=== PATIENT | female | born 1995 | race Caucasian/White ===

== ENCOUNTER 2016-04-20 09:21 | Emergency (ER) | payer SELFPAY ==
[2016-04-20 09:29] VITALS: BP 131/74
[2016-04-20 11:07] LABS: HEMATOCRIT 42.3 % (36.0-47.0); HEMOGLOBIN 14.6 g/dL (12.0-15.5); HGB HCT DIFFERENCE 1.5; MEAN CORPUSCULAR HEMOGLOBIN 33.5 pg (27.0-33.4); MEAN CORPUSCULAR HGB CONC 34.4 g/dL (32.0-36.0); MEAN CORPUSCULAR VOLUME 98 fl (80-97); RED BLOOD COUNT 4.34 10^6/uL (3.72-5.28); RED CELL DISTRIBUTION WIDTH 13.4 % (11.5-14.0); WHITE BLOOD COUNT 20.6 10^3/uL (4.0-10.5)
[2016-04-20 11:15] LABS: APPEARANCE,URINE CLOUDY; BILIRUBIN,URINE NEGATIVE (NEGATIVE); GLUCOSE, URINE NEGATIVE (NEGATIVE); KETONES,URINE TRACE mg/dL (NEGATIVE); LEUKOCYTE ESTERASE,URINE NEGATIVE (NEGATIVE); NITRITE,URINE NEGATIVE (NEGATIVE); PROTEIN,URINE 100 mg/dL (NEGATIVE); URINE SPECIFIC GRAVITY 1.033; UROBILINOGEN,URINE NEGATIVE mg/dL (<2.0)
[2016-04-20 11:28] LABS: ALANINE AMINOTRANSFERASE 24 U/L (9-52); ALBUMIN 5.1 g/dL (3.5-5.0); ALKALINE PHOSPHATASE 82 U/L (38-126); ANION GAP 16 (5-19); ASPARTATE AMINO TRANSFERASE 34 U/L (14-36); BILIRUBIN,TOTAL 0.8 mg/dL (0.2-1.3); BLOOD UREA NITROGEN 16 mg/dL (7-20); CALCIUM 10.5 mg/dL (8.4-10.2); CARBON DIOXIDE 24 mmol/L (22-30); CHLORIDE 99 mmol/L (98-107); CREATININE RESULT 0.71 mg/dL (0.52-1.25); GLUCOSE 98 mg/dL (75-110); POTASSIUM 3.4 mmol/L (3.6-5.0); SODIUM 138.6 mmol/L (137-145); TOTAL PROTEIN 8.6 g/dL (6.3-8.2)
[2016-04-20 11:29] LABS: BASOPHILS % (MANUAL) 0 % (0-2); EOSINOPHILS % (MANUAL) 0 % (0-6); LYMPHOCYTES % (MANUAL) 2 % (13-45); TOTAL CELLS COUNTED 100
[2016-04-20 11:30] LABS: RBC MORPHOLOGY COMMENT NORMO-CYTIC/CHROMIC; TOXIC GRANULATION 1+
--- NOTE | 2016-04-20 11:41 | ER Document Report ---
ED GI/ <GRECIA DELANEY - Last Filed: 04/20/16 12:28> - General Mode of Arrival: Ambulatory Information source: Patient - HPI Patient complains to provider of: Abdominal pain - "discomfort", Vomiting Onset: Yesterday Location: Epigastric Associated symptoms: Other - see above <DARIO LEVY - Last Filed: 04/20/16 15:04> - General Chief Complaint: Vomiting Stated Complaint: VOMITING Notes: 20-year-old female presents to the ED complaining of nausea and vomiting that started yesterday. Patient reports that she has some mild epigastric abdominal discomfort which "feels like a pit in my stomach." Patient denies any right- sided abdominal pain. Patient claims that she is at a loss of appetite and is unable to hold water down. Patient also complains of a sore throat, but denies fever. Patient states that she was seen at a clinic in [place] on Monday and was told she had a UTI. Patient claims that she was going to cook pickled meat the medication today. Patient had a pelvic exam also performed at the clinic in [place] which was negative. (DARIO LEVY) - Related Data Allergies/Adverse Reactions: No Known Allergies Allergy (Verified 04/20/16 09:49) Past Medical History - General Information source: Patient - Social History Smoking Status: Former Smoker Chew tobacco use (# tins/day): No Frequency of alcohol use: None Drug Abuse: None Family History: Reviewed & Not Pertinent Patient has suicidal ideation: No Patient has homicidal ideation: No Renal/ Medical History: Denies: Hx Peritoneal Dialysis Surgical Hx: Negative <DARIO LEVY - Last Filed: 04/20/16 15:04> Review of Systems - Review of Systems Constitutional: No symptoms reported. denies: Fever EENT: See HPI, Throat pain Cardiovascular: No symptoms reported Respiratory: No symptoms reported Gastrointestinal: See HPI, Abdominal pain - epigastric abdominal discomfort, Nausea, Vomiting, Poor appetite Genitourinary: No symptoms reported Female Genitourinary: No symptoms reported Musculoskeletal: No symptoms reported Skin: No symptoms reported Hematologic/Lymphatic: No symptoms reported Neurological/Psychological: No symptoms reported <DARIO LEVY - Last Filed: 04/20/16 15:04> Physical Exam - General General appearance: Alert In distress: None - HEENT Head: Normocephalic, Atraumatic Eyes: Normal Extraocular movements intact: Yes Pupils: PERRL - Respiratory Respiratory status: No respiratory distress Breath sounds: Normal - Cardiovascular Rhythm: Regular Heart sounds: Normal auscultation - Abdominal Inspection: Normal Distension: No distension Tenderness: Nontender, Other - No peritoneal sign.. No: Guarding, Rebound - Back Back: Normal - Extremities General upper extremity: Normal inspection, Normal ROM General lower extremity: Normal inspection, Normal ROM - Neurological Neuro grossly intact: Yes Cognition: Normal Orientation: AAOx4 Frazee Coma Scale Eye Opening: Spontaneous Albino Coma Scale Verbal: Oriented Albino Coma Scale Motor: Obeys Commands Albino Coma Scale Total: 15 Speech: Normal - Psychological Associated symptoms: Normal affect, Normal mood - Skin Skin Temperature: Warm Skin Moisture: Dry Skin Color: Normal <DARIO LEVY - Last Filed: 04/20/16 15:04> - Vital signs Vitals: Temp Pulse Resp BP Pulse Ox 98.0 F 74 18 131/74 H 98 04/20/16 09:28 04/20/16 09:28 04/20/16 09:28 04/20/16 09:28 04/20/16 09:28 Course - Laboratory Result Diagrams: 04/20/16 10:35 04/20/16 10:35 <GRECIA DELANEY - Last Filed: 04/20/16 12:28> - Laboratory Result Diagrams: 04/20/16 10:35 04/20/16 10:35 <DARIO LEVY - Last Filed: 04/20/16 15:04> - Re-evaluation Re-evalutation: 04/20/16 12:24 I personally performed the services described in the documentation, reviewed and edited the documentation which was dictated to my scribe in my presence, and it accurately records my words and actions. Patient presents to the emergency department with a chief complaint of 24 hours worth of vomiting. Patient says she was seen in [facility] ER 2 days ago had an extensive workup including a pelvic examination for blood work and told she had a UTI but did not fill the prescription. Here she's having some nausea but vehemently denies any fevers chills cough shortness of breath diarrhea blood in her stool urinary complaints chance of or flulike symptoms no ill contacts. On examination she is well-appearing nontoxic in no acute distress smiling and laughing with her boyfriend nontoxic HEENT heart lungs abdomen non-acute. Belly is soft no guarding rebound rigidity or peritoneal signs. Laboratory evaluation she does not have a urinary tract infection she does have a slightly elevated white count at 20,000 but nothing associated with that no flulike symptoms no earache second full workup in 2 days nontoxic. When and give her some Zofran for nausea which resolved it. Patient is to follow up with her primary care physician in one day and discussed reasons for ED return sooner no acute clinical concerns for meningitis or intra-abdominal pathology. ( GRECIA DELANEY) - Vital Signs Vital signs: Temp Pulse Resp BP Pulse Ox 98.0 F 74 18 131/74 H 98 04/20/16 09:28 04/20/16 09:28 04/20/16 09:28 04/20/16 09:28 04/20/16 09:28 - Laboratory Laboratory results interpreted by me: 04/20/16 04/20/16 04/20/16 10:35 10:35 10:40 WBC 20.6 H MCV 98 H MCH 33.5 H Seg Neuts % (Manual) 86 H Lymphocytes % (Manual) 2 L Abs Neuts (Manual) 17.7 H Abs Monocytes (Manual) 2.1 H Potassium 3.4 L Calcium 10.5 H Total Protein 8.6 H Albumin 5.1 H Urine Protein 100 H Urine Ketones TRACE H Discharge <GRECIA DELANEY - Last Filed: 04/20/16 12:28> <DARIO LEVY - Last Filed: 04/20/16 15:04> - Discharge Clinical Impression: Vomiting Qualifiers: Vomiting type: unspecified Vomiting Intractability: non-intractable Nausea presence: with nausea Qualified Code(s): R11.2 - Nausea with vomiting, unspecified Leukocytosis Qualifiers: Leukocytosis type: unspecified Qualified Code(s): D72.829 - Elevated white blood cell count, unspecified Condition: Stable Disposition: HOME, SELF-CARE Instructions: Antinausea Medication ([facility]) Additional Instructions: Vomiting and elevated wbc cell count Vomiting can be part of many illnesses. Most cases of vomiting are due to gastroenteritis, usually a viral infection in the intestinal tract. There is no specific treatment. The disease will end by itself. For now, the main danger to your child is dehydration. During the first few hours of the illness, give clear liquids, such as Pedialyte. Try to give small quantities frequently, such as a teaspoon of liquid every minute or about an ounce of fluids every five to ten minutes. Medications may be prescribed by the physician for special cases. After an hour or two of fluids without vomiting, add rice cereal, toast, applesauce, or bananas and other more solid foods to the clear liquids. Call the physician or go to the hospital if vomiting increases or blood appears in the bowel movement or vomitus; if your child fails to improve, or if signs of dehydration occur (no wet diapers for eight to twelve hours, tongue and mouth become dry, not acting as alert as usual). Prescriptions: Ondansetron [Zofran Odt 4 mg Tablet] 1 - 2 tab PO Q4H PRN #8 tab.rapdis PRN Reason: For Nausea/Vomiting Referrals: [facility] [Provider Group] - Follow up tomorrow (Return to the emergency prone sooner for increasing worsening or new symptoms) Scribe Documentation - Scribe Written by Jerad:: Jerad Sweeney, 04/20/2016 1504 acting as scribe for :: Marvin <DARIO LEVY - Last Filed: 04/20/16 15:04>
[2016-04-20] MEDS ORDERED: ONDANSETRON 4 MG TAB.RAPDIS PO ONE (11:43)
== END 2016-04-20 12:30 | disposition home or self-care (01) ==
LOC: ER 09:21
DX: R11.2 Nausea with vomiting, unspecified (principal); D72.829 Elevated white blood cell count, unspecified; R10.13 Epigastric pain; J02.9 Acute pharyngitis, unspecified; Z87.891 Personal history of nicotine dependence
CPT/HCPCS: 99283; 36415; 85025; 80053; 81001; S0119

== ENCOUNTER 2016-11-22 11:50 | Outpatient (CLI) | payer MEDICAID ==
[2016-11-22 12:27] LABS: APPEARANCE,URINE CLOUDY; BILIRUBIN,URINE NEGATIVE (NEGATIVE); GLUCOSE, URINE NEGATIVE (NEGATIVE); KETONES,URINE NEGATIVE (NEGATIVE); LEUKOCYTE ESTERASE,URINE MODERATE (NEGATIVE); NITRITE,URINE NEGATIVE (NEGATIVE); PROTEIN,URINE NEGATIVE (NEGATIVE); URINE SPECIFIC GRAVITY 1.004; UROBILINOGEN,URINE NEGATIVE mg/dL (<2.0)
[2016-11-22 12:41] LABS: ABSOLUTE EOSINOPHILS # (AUTO) 0.3 10^3/uL (0.0-0.6); ABSOLUTE LYMPHOCYTES (AUTO) 1.4 10^3/uL (0.5-4.7); ABSOLUTE MONOCYTES (AUTO) 0.5 10^3/uL (0.1-1.4); ABSOLUTE NEUT (AUTO) 4.9 10^3/uL (1.7-8.2); BASOPHILS % (AUTO) 0.4 % (0-2); EOSINOPHILS % (AUTO) 4.6 % (0-6); HEMOGLOBIN 11.3 g/dL (12.0-15.5); HGB HCT DIFFERENCE 1.9; LYMPHOCYTES % (AUTO) 19.1 % (13-45); MEAN CORPUSCULAR HEMOGLOBIN 34.6 pg (27.0-33.4); MEAN CORPUSCULAR HGB CONC 35.2 g/dL (32.0-36.0); MEAN CORPUSCULAR VOLUME 98 fl (80-97); MONOCYTES % (AUTO) 7.4 % (3-13); RED BLOOD COUNT 3.26 10^6/uL (3.72-5.28); RED CELL DISTRIBUTION WIDTH 14.2 % (11.5-14.0); SEGMENTED NEUTROPHILS % (AUTO) 68.5 % (42-78); WHITE BLOOD COUNT 7.2 10^3/uL (4.0-10.5)
[2016-11-22 12:42] LABS: URINE CREATININE 41.4 mg/dL (16-327); URINE PROTEIN 19.5 mg/dL (<12)
--- NOTE | 2016-11-22 12:44 | Non Stress Test Report ---
Non Stress Test Datetime Report Generated by CPN: 11/22/2016 12:44 DEMOGRAPHIC EGA NST: 38.4 INDICATION Indication for Study: Ordered by Provider MONITORING Monitor Explained: Monitor Explained; Test Explained; Patient Verbalized Understanding Time on Monitor: 11/22/2016 11:58 Time off Monitor: 11/22/2016 12:41 NST Duration: 43 NST INTERVENTIONS NST Interventions: PO Hydration; Meal Given; Reposition Patient Physician Notified NST: A Emmel CNM BABY A: [id number] BABY A Movement : Present Contraction Frequency : 0 FHR Baseline : 125 Accelerations : 15X15 Decelerations : None Variability : Moderate 6-25bpm NST Review: Meets Criteria for Reactive NST NST Review and Verified By : CEDRIC Richards Results: Reactive NST REPORT Report Trigger: Send Report
[2016-11-22 13:08] LABS: ALANINE AMINOTRANSFERASE 26 U/L (9-52); ALKALINE PHOSPHATASE 165 U/L (38-126); ANION GAP 7 (5-19); ASPARTATE AMINO TRANSFERASE 27 U/L (14-36); BILIRUBIN,DIRECT 0.2 mg/dL (0.0-0.4); BILIRUBIN,TOTAL 0.4 mg/dL (0.2-1.3); BLOOD UREA NITROGEN 6 mg/dL (7-20); CALCIUM 8.9 mg/dL (8.4-10.2); CARBON DIOXIDE 24 mmol/L (22-30); CHLORIDE 109 mmol/L (98-107); CREATININE RESULT 0.63 mg/dL (0.52-1.25); GLUCOSE 85 mg/dL (75-110); LDH 499 U/L (313-618); POTASSIUM 3.9 mmol/L (3.6-5.0); SODIUM 139.7 mmol/L (137-145); TOTAL PROTEIN 5.4 g/dL (6.3-8.2); URIC ACID 4.9 mg/dL (2.5-6.2)
[2016-11-22 14:02] LABS: URINE BARBITURATES SCREEN NEGATIVE; URINE METHADONE SCREEN NEGATIVE; URINE OPIATES LOW NEGATIVE; URINE PHENCYCLIDINE SCREEN NEGATIVE
== END 2016-11-22 13:23 | disposition home or self-care (01) ==
LOC: LC 11:50
PROVIDERS: ATTEND Obstetrics & Gynecology
PROC: 4A1HXCZ Monitoring of Products of Conception, Cardiac Rate, External Approach (ICD-10-PCS; principal; 2016-11-22)
DX: Z34.93 Encounter for supervision of normal pregnancy, unspecified, third trimester (principal)
CPT/HCPCS: 36415; 59025; 80053; 80307; 81001; 82570; 83615; 84156; 84550; 85025

== ENCOUNTER 2016-11-27 17:53 | Inpatient (IN) | payer MEDICAID ==
[2016-11-27] MEDS ORDERED: RINGERS SOLUTION,LACTATED 1,000 ML IV PRN (18:05)
[2016-11-27] MEDS ORDERED: ZOLPIDEM TARTRATE 5 MG TABLET PO PRN (18:05)
[2016-11-27] MEDS ORDERED: DINOPROSTONE 10 MG VAGINAL INSERT.SR PV PRN (18:05)
[2016-11-27 18:36] LABS: HEMATOCRIT 31.6 % (36.0-47.0); HEMOGLOBIN 11.3 g/dL (12.0-15.5); HGB HCT DIFFERENCE 2.3; MEAN CORPUSCULAR HEMOGLOBIN 34.9 pg (27.0-33.4); MEAN CORPUSCULAR HGB CONC 35.8 g/dL (32.0-36.0); MEAN CORPUSCULAR VOLUME 97 fl (80-97); RED BLOOD COUNT 3.24 10^6/uL (3.72-5.28); RED CELL DISTRIBUTION WIDTH 14.4 % (11.5-14.0)
[2016-11-27 18:40] LABS: APPEARANCE,URINE CLOUDY; BILIRUBIN,URINE NEGATIVE (NEGATIVE); GLUCOSE, URINE NEGATIVE (NEGATIVE); KETONES,URINE NEGATIVE (NEGATIVE); LEUKOCYTE ESTERASE,URINE SMALL (NEGATIVE); NITRITE,URINE NEGATIVE (NEGATIVE); PROTEIN,URINE 30 mg/dL (NEGATIVE); URINE SPECIFIC GRAVITY 1.015; UROBILINOGEN,URINE NEGATIVE mg/dL (<2.0)
[2016-11-27] MEDS ORDERED: DINOPROSTONE 10 MG VAGINAL INSERT.SR ONE (18:44)
[2016-11-27 18:53] LABS: ALANINE AMINOTRANSFERASE 33 U/L (9-52); ALBUMIN 3.2 g/dL (3.5-5.0); ALKALINE PHOSPHATASE 157 U/L (38-126); ANION GAP 9 (5-19); ASPARTATE AMINO TRANSFERASE 26 U/L (14-36); BILIRUBIN,DIRECT 0.3 mg/dL (0.0-0.4); BILIRUBIN,TOTAL 0.5 mg/dL (0.2-1.3); BLOOD UREA NITROGEN 8 mg/dL (7-20); CALCIUM 9.3 mg/dL (8.4-10.2); CARBON DIOXIDE 22 mmol/L (22-30); CHLORIDE 107 mmol/L (98-107); CREATININE RESULT 0.62 mg/dL (0.52-1.25); GLUCOSE 87 mg/dL (75-110); LDH 540 U/L (313-618); POTASSIUM 4.2 mmol/L (3.6-5.0); SODIUM 137.6 mmol/L (137-145); TOTAL PROTEIN 5.7 g/dL (6.3-8.2); URIC ACID 4.5 mg/dL (2.5-6.2)
[2016-11-27 18:59] LABS: URINE CREATININE 90.8 mg/dL (16-327); URINE PROTEIN 20.8 mg/dL (<12)
[2016-11-27 19:02] LABS: URINE BARBITURATES SCREEN NEGATIVE; URINE METHADONE SCREEN NEGATIVE; URINE OPIATES LOW NEGATIVE; URINE PHENCYCLIDINE SCREEN NEGATIVE
[2016-11-28] MEDS ORDERED: OXYTOCIN/NORMAL SALINE 20 UNIT/1,000 ML RTUINJ IV PRN (08:04)
[2016-11-28] MEDS ORDERED: OXYTOCIN/NORMAL SALINE 20 UNIT/1,000 ML RTUINJ ONE (08:14)
[2016-11-28] MEDS ORDERED: ONDANSETRON HCL INJ/PF 4 MG/2 ML SDV ONE (17:19)
[2016-11-28] MEDS ORDERED: ONDANSETRON HCL INJ/PF 4 MG/2 ML SDV IV ONE (18:00)
[2016-11-28] MEDS ORDERED: FENTANYL/BUPIVACAINE/NS/PF 200 MCG/100 ML RTUINJ EPI ONE (20:17)
[2016-11-28] MEDS ORDERED: BUPIVACAINE HCL 0.25 % INJ/PF (2.5 MG/1 ML) 30 ML VIAL ONE (20:17)
[2016-11-28] MEDS ORDERED: EPHEDRINE SULFATE INJ 50 MG/1 ML AMPULE ONE (20:17)
--- NOTE | 2016-11-28 20:28 | L&D Progress Notes ---
PROGRESS NOTES Datetime Report Generated by CPN: 11/28/2016 20:27 PROGRESS NOTE Impression: Normal Progression of Labor Procedures: Artificial ROM; Sterile Vag Exam Plan: Continue Present Management; Induction Informed Consent Obtained: Vaginal Delivery; Risks, Benefits and Alternatives Discussed Comment: cvx 3/50/-2. AROM clear fluid. Pt desires epidural. REviewed need for AROM due to IOL with minimal cervical change during the day for this IOL. Will continue with pitocin for IOL. Dr. Sims to be notified for epidural. VAGINAL EXAM Dilatation: 3 Effacement: 50 Station: -2 Contractions: q 2-3 MEMBRANES Pooling: Negative Membranes: Ruptured Amniotic Fluid Color: Clear FETUS A FHR - Baseline: 150 Monitoring: External US Variability: Moderate 6-25bpm Accelerations: 15X15 Decelerations: None FHR Category: Category I : 39.0 Presentation: Vertex SIGNATURE SIGNATURE: [id number] SIGNATURE: [id number] Signature: with User ID: [email or web address]
[2016-11-28] MEDS ORDERED: NALBUPHINE HCL INJ 10 MG/1 ML AMPULE INJ ONE (21:11)
[2016-11-28] MEDS ORDERED: NALBUPHINE HCL INJ 10 MG/1 ML AMPULE ONE (21:13)
[2016-11-28 21:48] LABS: ABSOLUTE EOSINOPHILS # (AUTO) 0.1 10^3/uL (0.0-0.6); ABSOLUTE LYMPHOCYTES (AUTO) 0.9 10^3/uL (0.5-4.7); ABSOLUTE MONOCYTES (AUTO) 0.8 10^3/uL (0.1-1.4); ABSOLUTE NEUT (AUTO) 12.9 10^3/uL (1.7-8.2); BASOPHILS % (AUTO) 0.2 % (0-2); EOSINOPHILS % (AUTO) 0.5 % (0-6); HEMATOCRIT 32.8 % (36.0-47.0); HEMOGLOBIN 11.5 g/dL (12.0-15.5); HGB HCT DIFFERENCE 1.7; LYMPHOCYTES % (AUTO) 6.4 % (13-45); MEAN CORPUSCULAR HEMOGLOBIN 34.2 pg (27.0-33.4); MEAN CORPUSCULAR VOLUME 98 fl (80-97); MONOCYTES % (AUTO) 5.2 % (3-13); RED BLOOD COUNT 3.37 10^6/uL (3.72-5.28); RED CELL DISTRIBUTION WIDTH 14.5 % (11.5-14.0); SEGMENTED NEUTROPHILS % (AUTO) 87.7 % (42-78); WHITE BLOOD COUNT 14.7 10^3/uL (4.0-10.5)
[2016-11-28 22:00] LABS: ALANINE AMINOTRANSFERASE 34 U/L (9-52); ALBUMIN 3.2 g/dL (3.5-5.0); ALKALINE PHOSPHATASE 187 U/L (38-126); ANION GAP 9 (5-19); ASPARTATE AMINO TRANSFERASE 27 U/L (14-36); BILIRUBIN,DIRECT 0.3 mg/dL (0.0-0.4); BILIRUBIN,TOTAL 0.6 mg/dL (0.2-1.3); BLOOD UREA NITROGEN 8 mg/dL (7-20); CALCIUM 8.9 mg/dL (8.4-10.2); CARBON DIOXIDE 20 mmol/L (22-30); CHLORIDE 109 mmol/L (98-107); CREATININE RESULT 0.55 mg/dL (0.52-1.25); GLUCOSE 82 mg/dL (75-110); LDH 562 U/L (313-618); POTASSIUM 3.6 mmol/L (3.6-5.0); SODIUM 137.8 mmol/L (137-145); TOTAL PROTEIN 5.7 g/dL (6.3-8.2); URIC ACID 4.8 mg/dL (2.5-6.2)
[2016-11-29] MEDS ORDERED: METHYLERGONOVINE MALEATE INJ/PF 0.2 MG/1 ML AMPULE ONE (05:57)
[2016-11-29] MEDS ORDERED: OXYTOCIN/NORMAL SALINE 20 UNIT/1,000 ML RTUINJ ONE (05:57)
[2016-11-29] MEDS ORDERED: LIDOCAINE 1% INJ-PF (10 MG/ML) 30 ML SDV ONE (05:57)
[2016-11-29] MEDS ORDERED: MISOPROSTOL 0.2 MG TABLET ONE (05:57)
[2016-11-29] MEDS ORDERED: PROMETHAZINE HCL 25 MG TABLET PO PRN (06:25)
[2016-11-29] MEDS ORDERED: PROMETHAZINE HCL INJ 25 MG/1 ML VIAL IV PRN (06:25)
[2016-11-29] MEDS ORDERED: PSEUDOEPHEDRINE HCL 30 MG TABLET PO PRN (06:25)
[2016-11-29] MEDS ORDERED: OXYTOCIN/NORMAL SALINE 20 UNIT/1,000 ML RTUINJ IV PRN (06:25)
[2016-11-29] MEDS ORDERED: BENZOCAINE/MENTHOL AEROSOL SPRAY 56 ML TOP PRN (06:25)
[2016-11-29] MEDS ORDERED: DIPHENHYDRAMINE HCL 25 MG CAPSULE PO PRN (06:25)
[2016-11-29] MEDS ORDERED: MEASLES,MUMPS&RUBELLA VACC/PF 0.5 ML VIAL SUBCUT PRN (06:25)
[2016-11-29] MEDS ORDERED: DIBUCAINE 1% OINTMENT 28 GM TP PRN (06:25)
[2016-11-29] MEDS ORDERED: ACETAMINOPHEN 650 MG SUPP.RECT PR PRN (06:25)
[2016-11-29] MEDS ORDERED: PROMETHAZINE HCL 25 MG SUPP.RECT PR PRN (06:25)
[2016-11-29] MEDS ORDERED: DIPH/PERTUSS(ACELL)/TETANUS VAC/PF 0.5 ML SYR (>=10YO) IM PRN (06:25)
[2016-11-29] MEDS ORDERED: ZOLPIDEM TARTRATE 5 MG TABLET PO PRN (06:25)
[2016-11-29] MEDS ORDERED: ACETAMINOPHEN WITH CODEINE #3 TABLET PO PRN ×2 (06:25)
[2016-11-29] MEDS ORDERED: NA PHOS,M-B/NA PHOS,DI-BA (ADULT) 133 ML ENEMA PR PRN (06:25)
[2016-11-29] MEDS ORDERED: MAGNESIUM HYDROXIDE SUSP 30 ML UDCUP PO PRN (06:25)
[2016-11-29] MEDS ORDERED: GLYCERIN/WITCH HAZEL LEAF 1 EACH MED..PAD TP PRN (06:25)
[2016-11-29] MEDS ORDERED: PIPERACILLIN/TAZOBACTAM 3.375 GM VIAL IV ONE ×2 (06:33→06:36)
[2016-11-29] MEDS ORDERED: ACETAMINOPHEN 325 MG TABLET ONE (08:08)
[2016-11-29] MEDS ORDERED: ACETAMINOPHEN 325 MG TABLET PO ONE (08:12)
--- NOTE | 2016-11-29 09:43 | Admission Physical ---
Datetime Report Generated by CPN: 11/29/2016 09:43 CURRENT ADMISSION Chief Complaint: Signs/Symptoms Gestational HTN Indication for Induction: PreEclampsia Indication for Induction: Term, Intrauterine ; Induction of Labor Admit Plan: Admit to Unit; Initiate Labor Induction Protocol ALLERGIES Medication Allergies: No Medication Allergies: No Known Allergies (11/27/2016) Medication Allergies: No Known Allergies (11/22/2016) Medication Allergies: No Known Allergies (04/20/2016) Latex: No Latex Allergies Food Allergies: None Environmental Allergies: None OBSTETRICAL HISTORY EDC: 12/02/2016 00:00 : 1 Para: 0 Term: 0 : 0 SAB: 0 IAB: 0 Ectopic: 0 Livin Cesareans: 0 VBACs: 0 Multiple Births: 0 Gestational Diabetes: No Rh Sensitization: No Incompetent Cervix: No YARELIS: No Infertility: No ART Treatment: No Uterine Anomaly: No IUGR: No Hx Previous C/S: No Macrosomia: No Hx Loss/Stillborn: No PIH: Yes Hx : No Placenta Previa/Abruption: No Depression/PP Depression: No PTL/PROM: No Post Hemorrhage: No Current Procedures: Ultrasound Obstetrical History Comments: G1 - Current - labile b/p w/ proteinuria, PreE vs Gest HTN SEE RECORDS Alcohol: No Marijuana : No Marijuana Frequency: Occasional Last Used: 05/17/2016 00:00 Previous Treatment: None Marijuana Comments: occasional use prior to Cocaine: No Other Illicit Drugs: No Cigarettes: Former Smoker. 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: No Heart Disease: No Hosp/Surgery: No Autoimmune Disorder: No Anesthetic Complications: No Kidney Disease: No Abnormal Pap Smear: No Neuro/Epilepsy: No Psychiatric Disorders: No Other Medical Diseases: No Hepatitis/Liver Disease: No Significant Family History: No Varicosities/Phlebitis: No Trauma/Violence : No Thyroid Dysfunction: No INFECTIOUS HISTORY Gonorrhea: No Genital Herpes: No Chlamydia: No Tuberculosis: No Syphilis: No Hepatitis: No HIV/AIDS Exposure: No Rash or Viral Illness: No HPV: No PHYSICAL EXAM General: Normal HEENT: Normal Neurologic: Normal Thyroid: Normal Heart: Normal Lungs: Normal Breast: Deferred Back: Normal Abdomen: Normal Genitourinary Exam: Normal Extremities: Normal DTRs: Normal Pelvic Type: Adequate Vital Signs: Reviewed VAGINAL EXAM Dilatation: 3 Effacement: 50 Station: -2 Contraction Comments: q 2-3 MEMBRANES Pooling: Negative Membranes: Ruptured Amniotic Fluid Color: Clear FETUS A EGA: 39.2 FHR- Baseline: 130 Decelerations: None FHR Category: Category I Presentation: Vertex Admit Comment: efw is 7-8 lbs PLANS FOR LABOR AND DELIVERY Labor and Delivery: None Pain Management: Epidural Feeding Preference: Breast Benefit of Breast Feed Discussed: Yes INFORMED CONSENT Informed Consent Obtained: Vaginal Delivery; Risks, Benefits and Alternatives Discussed Signature: with User ID: [email or web address]
[2016-11-29] MEDS: FAMOTIDINE 20 MG TABLET PO SCH ×2 (10:45→21:38)
[2016-11-29] MEDS: DOCUSATE SODIUM 100 MG CAPSULE PO SCH ×2 (10:45→18:19)
[2016-11-29] MEDS: FERROUS SULFATE 325 MG TABLET PO SCH ×2 (10:45→18:20)
[2016-11-29] MEDS: SENNOSIDES/DOCUSATE 8.6-50 MG 1 EACH TABLET PO SCH (10:45)
[2016-11-29] MEDS: PRENATAL VITAMIN W-O CA NO5/FE FUMARATE/FA CAPSULE PO SCH (10:49)
[2016-11-29] MEDS ORDERED: INFLUENZA ADLT QUAD (36MOS+) 2017-18 VAC 0.5 ML SYR IM PRN (11:14)
[2016-11-29] MEDS: PIPERACILLIN SODIUM/TAZOBACTAM 3.375 GM in NORMAL SALINE 100 ML IV SCH ×3 (12:21→23:26)
[2016-11-29] MEDS: IBUPROFEN 800 MG TABLET PO SCH ×2 (13:27→21:38)
[2016-11-30] MEDS: PIPERACILLIN SODIUM/TAZOBACTAM 3.375 GM in NORMAL SALINE 100 ML IV SCH (05:14)
[2016-11-30] MEDS: IBUPROFEN 800 MG TABLET PO SCH ×3 (05:15→21:28)
[2016-11-30 08:11] LABS: HEMATOCRIT 26.3 % (36.0-47.0); HGB HCT DIFFERENCE 1.6; MEAN CORPUSCULAR HEMOGLOBIN 34.8 pg (27.0-33.4); MEAN CORPUSCULAR HGB CONC 35.4 g/dL (32.0-36.0); MEAN CORPUSCULAR VOLUME 98 fl (80-97); RED BLOOD COUNT 2.68 10^6/uL (3.72-5.28); RED CELL DISTRIBUTION WIDTH 14.3 % (11.5-14.0); WHITE BLOOD COUNT 12.3 10^3/uL (4.0-10.5)
[2016-11-30 08:34] LABS: HEMOGLOBIN 9.3 g/dL (12.0-15.5)
[2016-11-30] MEDS: PRENATAL VITAMIN W-O CA NO5/FE FUMARATE/FA CAPSULE PO SCH (09:26)
[2016-11-30] MEDS: DOCUSATE SODIUM 100 MG CAPSULE PO SCH ×2 (09:26→17:39)
[2016-11-30] MEDS: SENNOSIDES/DOCUSATE 8.6-50 MG 1 EACH TABLET PO SCH (09:26)
[2016-11-30] MEDS: FERROUS SULFATE 325 MG TABLET PO SCH ×2 (09:26→17:39)
[2016-11-30] MEDS: FAMOTIDINE 20 MG TABLET PO SCH ×2 (09:27→21:28)
--- NOTE | 2016-11-30 11:46 | PDOC PROGRESS REPORT ---
Subjective-OB Subjective: Post Delivery Day: 1 21 year old. Denies any needs at this time, states lochia is stable, pain well controlled, voiding without difficulty. Physical Exam (OB) Vital Signs: Temp Pulse Resp BP Pulse Ox 98.1 F 64 16 120/61 100 11/30/16 08:43 11/30/16 08:43 11/30/16 08:43 11/30/16 08:43 11/30/16 08:43 Intake & Output 11/29/16 11/30/16 12/01/16 06:59 06:59 06:59 Intake Total 200 Balance 200 Weight 69.4 kg - PIH/Pre-Eclampsia DTR's: 1 + Clonus: Negative Headache: Absent Epigastric Pain: No Visual Changes: No - Lochia Lochia Amount: Scant < 10 ml Lochia Color: Rubra/Red - Abdomen Description: Soft Hernia Present: No Fundal Description: Firm Fundal Height: u/u - u/2 Objective-Diagnostic Laboratory: 11/30/16 07:29 11/28/16 21:40 11/30/16 07:29 WBC 12.3 H RBC 2.68 L Hgb 9.3 L D Hct 26.3 L MCV 98 H MCH 34.8 H MCHC 35.4 RDW 14.3 H Plt Count 163 Assessment and Plan(PN) - Assessment and Plan (1) Spontaneous vaginal delivery Is this a current diagnosis for this admission?: Yes Plan: routine pp care (2) Acute blood loss anemia Is this a current diagnosis for this admission?: Yes Plan: ferrous sulfate - Time Spent with Patient Time with patient: Less than 15 minutes Critical Time spent with patient: Less than 15 minutes Medications reviewed and adjusted accordingly: Yes - Disposition Anticipated Discharge: Home Within: within 24 hours
[2016-12-01] MEDS: IBUPROFEN 800 MG TABLET PO SCH ×2 (05:20→14:21)
[2016-12-01 08:43] VITALS: BP 129/84
[2016-12-01] MEDS: DOCUSATE SODIUM 100 MG CAPSULE PO SCH ×2 (09:33→18:16)
[2016-12-01] MEDS: FAMOTIDINE 20 MG TABLET PO SCH (09:34)
[2016-12-01] MEDS: PRENATAL VITAMIN W-O CA NO5/FE FUMARATE/FA CAPSULE PO SCH (09:34)
[2016-12-01] MEDS: SENNOSIDES/DOCUSATE 8.6-50 MG 1 EACH TABLET PO SCH (09:34)
[2016-12-01] MEDS: FERROUS SULFATE 325 MG TABLET PO SCH ×2 (09:34→18:16)
--- NOTE | 2016-12-01 10:38 | PDOC DISCHARGE SUMMARY ---
Final Diagnosis Discharge Date: 12/01/16 - Final Diagnosis (1) Acute blood loss anemia Is this a current diagnosis for this admission?: Yes (2) Spontaneous vaginal delivery Is this a current diagnosis for this admission?: Yes Discharge Data - Discharge Medication Home Medications: Cetirizine HCl [Zyrtec 10 mg Tablet] 10 mg PO QHS PRN 11/22/16 Pnv No.121/Iron/Folic Acid [ Multivitamin Tablet] 1 tab PO DAILY Ibuprofen [Motrin 800 mg Tablet] 800 mg PO Q8 #60 tablet 12/01/16 Reason(s) for Admission: Induction of Labor, PIH Procedures: NST Intrapartum Procedure(s): Spontaneous Vaginal Delivery - Diagnosis Test Laboratory: Temp Pulse Resp BP Pulse Ox 97.7 F 52 L 16 129/84 H 100 12/01/16 07:59 12/01/16 07:59 12/01/16 07:59 12/01/16 07:59 12/01/16 07:59 11/27/16 11/27/16 11/28/16 18:01 18:20 21:40 RBC 3.24 L 3.37 L Hgb 11.3 L 11.5 L Hct 31.6 L 32.8 L Urine Opiates Screen NEGATIVE 11/30/16 07:29 RBC 2.68 L Hgb 9.3 L D Hct 26.3 L Urine Opiates Screen - Discharge information/Instructions Discharge Activity: Activity As Tolerated, Pelvic Rest, No tub bath Discharge Diet: Regular Disposition: HOME, SELF-CARE Follow up with: [facility] in: 4, Weeks
--- NOTE | 2016-12-02 14:49 | Delivery Summary ---
Del Sum A-C Datetime Report Generated by CPN: 12/02/2016 14:49 DELIVERY PERSONNEL DELIVERY PERSONNEL: [id number] Delivery Doctor:: Sabnia Harrison MD Labor and Delivery Nurse:: Malka Lujan RN Labor and Delivery Nurse:: Lizet Resendiz RN Radiology Tech/EVALUATION ANALYST: Jen Wynne, ST MATERNAL INFORMATION Delivery Anesthesia: Epidural Medications After Delivery: Pitocin Drip 20 Units/1000ml NSS; Other-Please Comment Meds After Delivery Comment: Cytotec 1000mcg [place] Estimated Blood Loss (ml): 400 Maternal Complications: None Provider Comments: VMI delivered in REGULO presentation. No nuchal cord. Shoulders and body delivered without difficulty. Cord doubly clamped and cut and infant to maternal abdomen for NRP. Placenta delivered intact spontaneously. FF at U. Mild uterine atony resolved with pitocin and 1000mcg TX cytotec. Good hemostasis. No perineal lacerations. Mother and baby stable upon provider leaving the room. LABOR SUMMARY EDC: 12/02/2016 00:00 No. Babies in Womb: 1 Attempted: No Labor Anesthesia: Epidural LABOR INFORMATION Reason for Induction: Pre-Eclampsia Onset of Labor: 11/28/2016 19:53 Complete Dilatation: 11/29/2016 02:32 Cervical Ripening Agents: Cervidil Oxytocin: Induction Group B Beta Strep: Negative Antibiotics # of Doses: 0 Steroids Given: None Reason Steroids Not Administered: Not Applicable MEMBRANES Membranes Rupture Method: Artificial Rupture of Membranes: 11/28/2016 19:53 Length of Rupture (hr): 10.23 Amniotic Fluid Color: Clear Amniotic Fluid Amount: Small Amniotic Fluid Odor: Normal STAGES OF LABOR Stage 1 hr: 6 Stage 1 min: 39 Stage 2 hr: 3 Stage 2 min: 35 Stage 3 hr: 0 Stage 3 min: 3 Total Time in Labor hr: 10 Total Time in Labor min: 17 VAGINAL DELIVERY Episiotomy: None Laceration #1: None Laceration Extension #1: N/A Laceration Repair: Not Applicable Sponge Count Correct: N/A Sharps Count Correct: N/A CSECTION DELIVERY Primary Indication: N/A Secondary Indication: N/A CSection Incidence: N/A Labor: N/A Elective: N/A CSection Incision: N/A BABY A INFORMATION Infant Delivery Date/Time: 11/29/2016 06:07 Method of Delivery: Vaginal Born in Route : No : N/A Forceps: N/A Vacuum Extraction: N/A Shoulder Dystocia : No PRESENTATION/POSITION BABY A Presentation: Cephalic Cephalic Presentation: Vertex Vertex Position: Left Occipital Anterior Breech Presentation: N/A PLACENTA INFORMATION BABY A Placenta Delivery Time : 11/29/2016 06:10 Placenta Method of Delivery: Spontaneous Placenta Status: Delivered SCORES BABY A Heart Rate 1 min: >100 bpm Resp Effort 1 min: Good Cry Reflex Irritability 1 min: Cough or Sneeze or Pulls Away Muscle Tone 1 min: Active Motion Color 1 min: Blue/Pale Resuscitation Effort 1 min: Tactile Stimulation SCORE 1 MIN: 8 Heart Rate 5 min: >100 bpm Resp Effort 5 min: Good Cry Reflex Irritability 5 min: Cough or Sneeze or Pulls Away Muscle Tone 5 min: Active Motion Color 5 min: Body Circle, Extremities Blue Resuscitation Effort 5 min: Tactile Stimulation SCORE 5 MIN: 9 INFANT INFORMATION BABY A Gestational Age at Delivery: 39.4 Gestational Status: Full Term- 39- 40.6 Weeks Outcome : Liveborn Condition : Stable Infant Sex: Male IDENTIFICATION BABY A Infant Verification Date/Time: 11/29/2016 06:13 ID Band Number: [id number] Mother's Name Verified: Yes Infant RN Verifying : S. Lattibeaudeir, RN [facility] WEIGHT/LENGTH BABY A Infant Birthweight (gm): 3450 Infant Weight (lb): 7 Weight (oz): 10 Infant Length (in): 21.00 Infant Length (cm): 53.34 CORD INFORMATION BABY A No. Cord Vessels: 3 Nuchal Cord : N/A Cord Blood Taken: Yes-For Storage (Mom's Blood type +) Suction: Mouth; Nose ASSESSMENT BABY A Infant Complications: None Physical Findings at Delivery: Caput Succedaneum; Molding of the Head; Puncture Wound from Scalp Electrode Infant Respirations: Appears Normal Skin to Skin: Yes Skin to Skin Time (min): 30 Tank Pumper Panelboard/ALS Called : No Care By: Simba Resendiz RN Transferred To: Remains with Mother BABY B INFORMATION : N/A SIGNATURES Signature: with User ID: [email or web address]
== END 2016-12-01 18:55 | disposition home or self-care (01) | DRG 775 ==
LOC: LR 17:53 → 2S 11-29 09:41
PROVIDERS: ADMIT Student in an Organized Health Care Education/Training Program; ATTEND Student in an Organized Health Care Education/Training Program
PROC: 10E0XZZ Delivery of Products of Conception, External Approach (ICD-10-PCS; principal; 2016-11-29)
PROC: 4A1HXCZ Monitoring of Products of Conception, Cardiac Rate, External Approach (ICD-10-PCS; 2016-11-29)
PROC: 3E0234Z Introduction of Serum, Toxoid and Vaccine into Muscle, Percutaneous Approach (ICD-10-PCS; 2016-12-01)
PROC: 3E0234Z Introduction of Serum, Toxoid and Vaccine into Muscle, Percutaneous Approach (ICD-10-PCS; 2016-12-01)
DX: O14.94 Unspecified pre-eclampsia, complicating childbirth (principal); D62 Acute posthemorrhagic anemia; O62.2 Other uterine inertia; O99.02 Anemia complicating childbirth; Z3A.39 39 weeks gestation of pregnancy; Z37.0 Single live birth; Z23 Encounter for immunization; Z87.891 Personal history of nicotine dependence
CPT/HCPCS: 36415; 80053; 80307; 81001; 82570; 83615; 84156; 84550; 85025; 85027; 86592; 86850; 86900; 86901; 90686; 90707; 94760; J2210; J2300; J2405; J2543; J2590; J3490

== ENCOUNTER → 2017-05-24 | Outpatient (CLI) | payer MEDICAID ==
[2017-05-24 16:19] LABS: ABSOLUTE BASOPHILS # (AUTO) 0.1 10^3/uL (0.0-0.2); ABSOLUTE EOSINOPHILS # (AUTO) 0.1 10^3/uL (0.0-0.6); ABSOLUTE LYMPHOCYTES (AUTO) 1.8 10^3/uL (0.5-4.7); ABSOLUTE MONOCYTES (AUTO) 0.7 10^3/uL (0.1-1.4); ABSOLUTE NEUT (AUTO) 5.4 10^3/uL (1.7-8.2); BASOPHILS % (AUTO) 0.9 % (0-2); EOSINOPHILS % (AUTO) 1.4 % (0-6); HEMATOCRIT 40.6 % (36.0-47.0); HEMOGLOBIN 13.5 g/dL (12.0-15.5); MEAN CORPUSCULAR HEMOGLOBIN 32.1 pg (27.0-33.4); MEAN CORPUSCULAR HGB CONC 33.3 g/dL (32.0-36.0); MEAN CORPUSCULAR VOLUME 96 fl (80-97); MONOCYTES % (AUTO) 8.5 % (3-13); PLATELET COUNT 209 10^3/uL (150-450); RED BLOOD COUNT 4.21 10^6/uL (3.72-5.28); RED CELL DISTRIBUTION WIDTH 13.6 % (11.5-14.0); SEGMENTED NEUTROPHILS % (AUTO) 67.2 % (42-78); TOTAL CELLS COUNTED % (AUTO) 100 %
[2017-05-26 13:38] LABS: ANTICHROMATIN AB <0.2 AI (0.0-0.9); CENTROMERE B AB <0.2 AI (0.0-0.9); JO-1 ANTIBODY (ANACOMP) <0.2 AI (0.0-0.9); RNP AB <0.2 AI (0.0-0.9); SCLERODERMA-70 ANTIBODIES <0.2 AI (0.0-0.9); SJOGREN'S ANTI-SS-B AB <0.2 AI (0.0-0.9); SJOGREN'S SS-A ANTIBODY <0.2 AI (0.0-0.9); SMITH AB ANA <0.2 AI (0.0-0.9)
[2017-05-26 15:13] LABS: DNA DOUBLE STRAND ANTIBODY ANA 1 IU/mL (0-9)
[2017-05-26 17:37] LABS: CYTOPLASMIC (C-ANCA) <1:20 titer (Neg:<1:20)
[2017-05-27 13:02] LABS: ATYPICAL PANCA <1:20 titer (Neg:<1:20); PERINUCLEAR (P-ANCA) <1:20 titer (Neg:<1:20)
[2017-05-30 12:39] LABS: M001-IGE PENICILLIUM CHRYSOGEN <0.10 kU/L (Class 0); M002-IGE CLADOSPORIUM HERBARUM <0.10 kU/L (Class 0); M003-IGE ASPERGILLUS FUMIGATUS <0.10 kU/L (Class 0); M004-IGE MUCOR RACEMOSUS <0.10 kU/L (Class 0); M005-IGE CANDIDA ALBICANS <0.10 kU/L (Class 0); M006-IGE ALTERNARIA ALTERNATA <0.10 kU/L (Class 0); M009-IGE FUSARIUM PROLIFERATUM <0.10 kU/L (Class 0); M012-IGE AUREOBASIDI PULLULANS <0.10 kU/L (Class 0); M013-IGE PHOMA BETAE <0.10 kU/L (Class 0); M014-IGE EPICOCCUM PURPURASCEN <0.10 kU/L (Class 0)
[2017-05-30 15:16] LABS: M010-IGE STEMPHYLIUM HERBARUM <0.10 kU/L (Class 0)
== END ==
LOC: OD 15:13
PROVIDERS: ATTEND Physician Assistant
DX: J45.909 Unspecified asthma, uncomplicated (principal)
CPT/HCPCS: 36415; 82785; 85025; 86003; 86021; 86225; 86235; 86430